=== PATIENT | female | born 1975 | race Two or more races ===

== ENCOUNTER 2020-08-02 15:39 | Emergency (ER) | payer MEDICAID, SELFPAY ==
[2020-08-02 16:26] VITALS: BP 160/102; PULSE 83; RESP 16; TEMP 36.8; O2SAT 98; BMI 32.8
--- NOTE | 2020-08-02 17:09 | ED_ITS ---
HPI - Wound/Laceration General Chief Complaint: Wound/Laceration <MICAELA Estrella - Last Filed: 08/02/20 17:28> Stated Complaint: ? nostril infection <MICAELA Estrella - Last Filed: 08/02/20 17:28> Time Seen by Provider: 08/02/20 16:59 <MICAELA Estrella - Last Filed: 08/02/20 17:28> History of Present Illness HPI narrative: Or patient with history of IV drug abuse, hypertension, diabetes complains of picking at the left nostril for the last 3 weeks with increasing crusting and swelling around the nostril and the face around the nostril, she has no difficulty breathing or swallowing no headache no fever no chills, pain is mild <MICAELA Estrella Last Filed: 08/02/20 17:28> Related Data Home Medications: Previous Rx's Medication Instructions Recorded amoxicillin-pot clavulanate 1 tab PO Q12H 10 Days #20 tab 08/02/20 [Augmentin] doxycycline hyclate 100 mg PO BID 7 Days #14 cap 08/02/20 mupirocin 1 appl TOPICAL TID #22 g 08/02/20 <MICAELA Estrella - Last Filed: 08/02/20 17:28> Allergies/Adverse Reactions: Allergies Allergy/AdvReac Type Severity Reaction Status Date / Time No Known Allergies Allergy Unverified 03/29/20 16:15 <MICAELA Estrella - Last Filed: 08/02/20 17:28> Review of Systems Review of Systems: Positive for left nostril mild pain and swelling No fever no chills no dizziness no weakness no fatigue no body aches, no chest pain no cough no shortness of breath, no difficulty breathing or swallowing, no nausea no vomiting no difficulty eating or drinking, no headache <MICAELA Estrella Last Filed: 08/02/20 17:28> FORMERLY [facility], [facility] Past Medical History Attestation statement: The following information was validated with the patient. <MICAELA Estrella - Last Filed: 08/02/20 17:28> [facility], [facility] Narrative: Patient is IV drug user <MICAELA Estrella Last Filed: 08/02/20 17:28> Medical History: Medical History (Updated 08/03/20 @ 00:00 by Background Daemon) Asthma Diabetes HTN (hypertension) <MICAELA Estrella - Last Filed: 08/02/20 17:28> Social History Social History: Social History Smoking Status: Current every day smoker Use of substances other than those prescribed or required for medical reasons: Yes Substance Use Type: Heroin Substance Use Frequency: Daily Last Used Substance: Hours (ago) Advance Directives: No Advance Directives Information Provided: Yes <MICAELA Estrella - Last Filed: 08/02/20 17:28> Physical Exam Vital Signs: Vital Signs: Last Vital Signs Temp 98.2 F 08/02/20 16:26 Pulse 83 08/02/20 16:26 Resp 16 08/02/20 16:26 BP 160/102 H 08/02/20 16:26 Pulse Ox 98 08/02/20 16:26 Body Mass Index 32.8 <MICAELA Estrella - Last Filed: 08/02/20 17:28> Vital Signs: Last Vital Signs Temp 98.2 F 08/02/20 16:26 Pulse 83 08/02/20 16:26 Resp 16 08/02/20 16:26 BP 160/102 H 08/02/20 16:26 Pulse Ox 98 08/02/20 16:26 Body Mass Index 32.8 <Herbert Dumont MD - Last Filed: 08/08/20 10:32> General appearance is no acute distress comfortable and cooperative, a and O x3 The ears are clear with normal tympanic membranes the eyes are clear without discharge The nose the left nostril is mildly swollen with crusting and redness in the nostril, septum is intact, there is some mild facial swelling in the left maxillary area, the pharynx is clear, there is no difficulty swallowing , voice is normal, no significant redness around the face, there is tenderness to the left maxillary sinus, there is no fluctuant area no abscess The neck is supple, there is a tender mobile the left submandibular lymph node The chest is clear to auscultation bilaterally with full symmetrical equal breath sounds The heart no murmur auscultated Extremities full range of motion x4 Neuro no focal deficit <MICAELA Estrella - Last Filed: 08/02/20 17:28> Course Course Course Narrative: Well-appearing patient with a cellulitis of the nose and spreading into the face is treated with trial of oral antibiotics and mupirocin and will return for recheck in 2-3 days There is no evidence of abscess, no fluctuant area, nothing to drain <MICAELA Estrella - Last Filed: 08/02/20 17:28> I have reviewed the chart <Herbert Dumont MD - Last Filed: 08/08/20 10:32> Discharge Plan Discharge Clinical Impression: Cellulitis of face <MICAELA Estrella - Last Filed: 08/02/20 17:28> Patient Disposition: Home, Self-Care <MICAELA Estrella - Last Filed: 08/02/20 17:28> Additional Instructions: Return to ER in 2 days for recheck Return to ER any time for worse facial swelling, pain, spreading redness, fever, any sign of worsening infection or any concerns You get a tetanus shot <MICAELA Estrella - Last Filed: 08/02/20 17:28> Prescriptions: New doxycycline hyclate 100 mg capsule 100 mg PO BID 7 Days Qty: 14 RF: 0 amoxicillin-pot clavulanate [Augmentin] 875-125 mg tablet 1 tab PO Q12H 10 Days Qty: 20 RF: 0 mupirocin 2 % ointment 1 appl topical TID Qty: 22 RF: 0 <MICAELA Estrella - Last Filed: 08/02/20 17:28> Stand Alone Forms: Work/School Release <MICAELA Estrella - Last Filed: 08/02/20 17:28> Interventions: ED Discharge Assessment Last Done: 08/02/20 18:41 <MICAELA Estrella - Last Filed: 08/02/20 17:28> Discharge Date/Time: 08/02/20 18:46 <MICAELA Estrella - Last Filed: 08/02/20 17:28>
[2020-08-02] MEDS: Amoxicillin/Potassium Clav 875 MG TABLET PO (17:31)
== END 2020-08-02 18:46 | disposition home or self-care (01) ==
PROVIDERS: Emergency Provider Emergency Medicine; PCP Internal Medicine
DX: J34.0 Abscess, furuncle and carbuncle of nose (principal); S00.31XA Abrasion of nose, initial encounter; F11.10 Opioid abuse, uncomplicated; F17.200 Nicotine dependence, unspecified, uncomplicated; X58.XXXA Exposure to other specified factors, initial encounter; Y93.9 Activity, unspecified; Y92.9 Unspecified place or not applicable; Y99.9 Unspecified external cause status; Z71.6 Tobacco abuse counseling; Z79.899 Other long term (current) drug therapy; Z71.51 Drug abuse counseling and surveillance of drug abuser
CPT/HCPCS: 90471; 90715; 99283; 99284

== ENCOUNTER 2020-11-25 11:38 | Emergency (ER) | payer MEDICAID, SELFPAY ==
[2020-11-25 11:52] VITALS: BP 187/100; PULSE 106; RESP 22; TEMP 36.6; O2SAT 97; BMI 30.9
--- NOTE | 2020-11-25 11:54 | ED.GENADULT ---
HPI - General Adult General Chief complaint: Overdose Stated complaint: drug use Source: patient Mode of arrival: ambulatory Limitations: no limitations History of Present Illness HPI narrative: Patient presents to ED for drug use. Patient admits to snorting heroin and cocaine. Patient denies falling. Patient seems high. Related Data Previous Rx's Medication Instructions Recorded amoxicillin-pot clavulanate 1 tab PO Q12H 10 Days #20 tab 08/02/20 [Augmentin] doxycycline hyclate 100 mg PO BID 7 Days #14 cap 08/02/20 mupirocin 1 appl TOPICAL TID #22 g 08/02/20 Allergies Allergy/AdvReac Type Severity Reaction Status Date / Time No Known Allergies Allergy Unverified 03/29/20 16:15 Review of Systems Review of Systems: Yes all other systems are reviewed and are negative Constitutional: Constitutional: Reports as per HPI and Reports no additional constitutional complaints Eyes: Eyes: Reports as per HPI and Reports no additional eye complaints ENT: Reports system reviewed and no additional complaints, except as documented and Reports as per HPI Cardiovascular: Cardiovascular: Reports as per HPI and Reports no additional cardiovascular complaints Respiratory: Respiratory: Reports as per HPI and Reports no additional respiratory complaints Gastrointestinal: Gastrointestinal: Reports as per HPI and Reports no additional gastrointestinal complaints Genitourinary: Genitourinary: Reports no additional female genitourinary complaints and Reports as per HPI Musculoskeletal: Musculoskeletal: Reports no additional musculoskeletal complaints and Reports as per HPI Neurologic: Reports system reviewed and no additional complaints, except as documented and Reports as per HPI Psychiatric: Psychiatric: Reports no additional psychiatric complaints and Reports as per HPI [facility] Past Medical History Medical History (Updated 11/25/20 @ 15:52 by MICAELA Charles) Asthma Diabetes HTN (hypertension) Social History Social History Smoking Status: Current every day smoker Substance Use Type: Heroin Advance Directives: No Advance Directives Information Provided: No Physical Exam Vital Signs: Vital Signs: Last Vital Signs Temp 97.9 F 11/25/20 11:52 Pulse 106 H 11/25/20 11:52 Resp 22 H 11/25/20 11:52 BP 187/100 H 11/25/20 11:52 Pulse Ox 97 11/25/20 11:52 Body Mass Index 30.9 Const: Other: Patient high. Patient talks to herself and the random movements of body. General: cooperative, healthy appearing and comfortable Orientation/consciousness: patient oriented x3 HENMT: Head: Yes normal to inspection, Yes No palpable skull fracture present, Yes normocephalic and Yes atraumatic Eyes: General: appearance normal, both eyes and all related structures Neck: Neck: Yes normal visual inspection, Yes full ROM, Yes no lymphadenopathy, Yes no meningeal signs, Yes trachea midline, Yes supple and No tender Chest: Chest palpation & inspection: normal inspection of the chest and normal palpation of entire chest wall Resp: Effort & Inspection: normal respiratory effort and able to speak in complete sentences Auscultation: clear to auscultation bilaterally Cardio: Jugular venous distension: no JVD Heart sounds: S1 normal heart sound present and S2 normal heart sound present GI: Inspection: Yes normal to inspection and No abdominal wall ecchymosis Palpation (GI): Soft to palpation, not firm, nontender, no guarding and not rigid : General: No CVA tenderness and Yes no CVA tenderness Back/Spine/Pelvis: Back: no CVA tenderness, No CVA tenderness and No back tenderness Skin: General skin exam: no rashes or lesions noted and elasticity normal Neuro: Other: under the influence General: patient oriented x3, no meningeal signs and CN's II-XI intact bilaterally Cranial nerves: Yes CN's II-XII intact bilaterally Extrem: General: Yes normal to inspection and Yes full ROM Psych: Appearance: grossly normal, well kempt and disheveled Course Course Course Narrative: Patient will be allowed to sober and re-evaluated. Reevaluation(s) Reevaluation #1: When patient became alert oriented x3 patient eloped from the ER as per charge nurse. Medical Decision Making [facility] Narrative Medical decision making narrative: opiate abuse Lab Data Labs: Lab Results 11/25/20 Range/Units 12:01 POC Glucose 104 (60-115) mg/dL Discharge Plan Discharge Clinical Impression: Opioid abuse Patient Disposition: Elopement Prescriptions: No Action doxycycline hyclate 100 mg capsule 100 mg PO BID 7 Days Qty: 14 RF: 0 amoxicillin-pot clavulanate [Augmentin] 875-125 mg tablet 1 tab PO Q12H 10 Days Qty: 20 RF: 0 mupirocin 2 % ointment 1 appl topical TID Qty: 22 RF: 0 Interventions: ED Discharge Assessment Last Done: 11/25/20 15:10 Discharge Date/Time: 11/25/20 14:25
[2020-11-25 12:05] LABS: Glucose, Whole Blood 104 mg/dL (60-115)
== END 2020-11-25 14:25 | disposition left against medical advice (07) ==
PROVIDERS: Emergency Provider Emergency Medicine
DX: T40.1X1A Poisoning by heroin, accidental (unintentional), initial encounter (principal); T40.5X1A Poisoning by cocaine, accidental (unintentional), initial encounter; F11.10 Opioid abuse, uncomplicated; Y92.9 Unspecified place or not applicable; Z79.899 Other long term (current) drug therapy; Z71.51 Drug abuse counseling and surveillance of drug abuser
CPT/HCPCS: 82947; 99283

== ENCOUNTER 2020-12-17 15:09 | Emergency (ER) | payer MEDICAID, SELFPAY ==
--- NOTE | ~2020-12-17 | CT_ITS ---
EXAMINATION: CT ABDOMEN AND PELVIS WITHOUT CONTRAST CLINICAL INFORMATION: Left flank and left lower abdominal pain COMPARISON: CT abdomen and pelvis 10/11/2016 TECHNIQUE: Multidetector volumetric imaging was performed from the superior aspect of the liver through the pubic symphysis. Sagittal and coronal reformatted images were obtained on the technologist's workstation. This CT examination was performed using dose optimization techniques as appropriate, variously including the following: *Automated exposure control *Adjustment of mA and/or kV according to patient size (this includes techniques or standardized protocols for targeted exams where dose is matched to indication/reason for exam; i.e. extremities or head) *Use of iterative reconstruction technique DLP: 556 mGy-cm FINDINGS: LUNG BASES: The visualized lung bases are unremarkable. LIVER, GALLBLADDER, AND BILIARY TREE: The liver is normal in size, shape, and attenuation. No focal hepatic lesion or biliary ductal dilatation is present. The gallbladder is unremarkable with no evidence of radiopaque gallstones, gallbladder wall thickening, or obvious pericholecystic inflammatory changes. PANCREAS: Unremarkable. SPLEEN: Unremarkable. ADRENAL GLANDS: Unremarkable. KIDNEYS AND URETERS: The kidneys are normal in size, shape, and attenuation. There is a 2 mm radiopaque calculi mid pole right kidney without caliectasis. There is mild left hydroureteronephrosis, likely 2 mm left UVJ stone. There are numerous phleboliths seen in the pelvis especially left side limiting evaluation of the left ureter. Left kidney measures 11.2 cm in length and the right kidney measures 11.4 cm in length. BLADDER: The bladder is nondistended. GASTROINTESTINAL TRACT: Scattered stool and gas is seen throughout the colon without significant distention. The small bowel loops are normal caliber. ABDOMINAL WALL: A small umbilical hernia containing fat is noted. LYMPH NODES: Normal. VASCULAR: Unremarkable. PELVIC VISCERA: The uterus is anteverted and appears unremarkable. No free air or free fluid seen. OSSEOUS STRUCTURES: Unremarkable. CT/CT abdomen pelvis wo con IMPRESSION: Suspect lumen of partially obstructing left distal ureteral stone with mild hydroureteronephrosis. There are numerous phleboliths in in the pelvis especially on the left distal ureter Limited evaluation of this area and ureteral stones. There is nonobstructive 2 mm radiopaque calculi mid pole right kidney. Mild constipation.
[2020-12-17 15:26] VITALS: BP 163/79; PULSE 50; RESP 16; TEMP 36.6; O2SAT 97; BMI 24.7
--- NOTE | 2020-12-17 15:35 | ED_ITS ---
HPI - Abdominal Pain General Chief Complaint: Abdominal Pain Stated Complaint: LLQ PAIN Time Seen by Provider: 12/17/20 15:35 Source: patient Mode of arrival: EMS Limitations: no limitations History of Present Illness HPI narrative: left lower abdominal pain, resent heroine use, patient states that her urine is dark. MD elicited complaint: abdominal pain Onset (ago): hour(s) Pain Consistency: constant Severity: mild Quality: cramping Exacerbating factors: nothing Relieving factors: nothing Associated symptoms: nausea and vomiting Related Data Previous Rx's Medication Instructions Recorded amoxicillin-pot clavulanate 1 tab PO Q12H 10 Days #20 tab 08/02/20 [Augmentin] doxycycline hyclate 100 mg PO BID 7 Days #14 cap 08/02/20 mupirocin 1 appl TOPICAL TID #22 g 08/02/20 Allergies Allergy/AdvReac Type Severity Reaction Status Date / Time No Known Allergies Allergy Unverified 03/29/20 16:15 Review of Systems Constitutional: Reports no additional constitutional complaints Eyes: Reports no additional eye complaints Denies dizziness Cardiovascular: Reports no additional cardiovascular complaints Respiratory: Reports as per HPI Gastrointestinal: Reports no additional gastrointestinal complaints Genitourinary: Reports no additional female genitourinary complaints Musculoskeletal: Reports no additional musculoskeletal complaints Skin/Breast: Denies rash Reports system reviewed and no additional complaints, except as documented, Denies dizziness and Denies Sensory deficit (Neuro) Psychiatric: Denies anxiety Physical Exam Vital Signs: Vital Signs: Last Vital Signs Temp 97.8 F 12/17/20 16:14 Pulse 68 12/17/20 16:14 Resp 13 12/17/20 16:14 BP 146/68 H 12/17/20 16:14 Pulse Ox 98 12/17/20 16:14 Body Mass Index 24.7 Const: Other: Patient does not appear to be in pain, seems still to be influenced by heroine Nutritional Appearance: average body habitus Orientation/consciousness: oriented to person and patient oriented x3 Limitations: no limitations HENMT: Head: Yes normal to inspection Ears: external ears normal General nose exam: Normal external nose present Mouth: Normal oral and palatal mucosa present and oropharynx normal Throat: Yes posterior oropharynx normal Eyes: General: appearance normal, both eyes and all related structures Neck: Other: supple Neck: Yes normal visual inspection Chest: Chest palpation & inspection: normal inspection of the chest Resp: Auscultation: clear to auscultation bilaterally Cardio: Jugular venous distension: no JVD Rate: regular rate Rhythm: regular rhythm Heart sounds: S1 normal heart sound present and S2 normal heart sound present GI: Inspection: Yes normal to inspection Palpation (GI): Soft to palpation, nontender and No hepatosplenomegaly present Auscultation: normal bowel sounds Back/Spine/Pelvis: Other: mild CVAT on left Skin: General skin exam: no rashes or lesions noted Neuro: General: oriented to person and patient oriented x3 Cranial nerves: Yes CN's II-XII intact bilaterally Motor exam (neuro): 5/5 motor strength present throughout Sensory Exam: No Sensory deficit (Neuro) Extrem: General: Yes normal to inspection Psych: Appearance: grossly normal Course Course Course Narrative: Patient still under the influence of heroine but I suspect she may have a kidney stone. Awaitiing Ct results and UA. Will sign out to Dr. Mcelroy [facility] - Abdominal Pain Lab Data Result diagrams: 12/17/20 15:50 12/17/20 15:50 Labs: Lab Results 12/17/20 Range/Units 15:50 RBC 4.88 (4.20-5.50) X10*6/uL Hgb 12.1 (12.0-16.0) g/dl Hct 39.7 (37-47) % MCV 81.4 (80-98) fL MCH 24.8 L (27.0-33.0) pg MCHC 30.5 L (31.0-35.0) g/dl RDW 15.9 (11.0-16.0) % Plt Count 259 (160-400) X10*3/uL MPV 12.5 H (9.4-12.3) fL Immature Gran % (Auto) Cancelled Neut % (Auto) Cancelled Lymph % (Auto) Cancelled [place] % (Auto) Cancelled Eos % (Auto) Cancelled Baso % (Auto) Cancelled Lymph # (Auto) Cancelled [place] # (Auto) Cancelled Eos # (Auto) Cancelled Baso # (Auto) Cancelled Abs Immat Gran (auto) Cancelled Absolute Neuts (auto) Cancelled Absolute Nucleated RBC 0.000 (0.0-0.012) X10*3/uL Nucleated RBC % (auto) 0.0 (0.0-0.2) /100WBC Discharge Plan Discharge Prescriptions: No Action doxycycline hyclate 100 mg capsule 100 mg PO BID 7 Days Qty: 14 RF: 0 amoxicillin-pot clavulanate [Augmentin] 875-125 mg tablet 1 tab PO Q12H 10 Days Qty: 20 RF: 0 mupirocin 2 % ointment 1 appl topical TID Qty: 22 RF: 0 PMFSH Past Medical History Medical History Asthma Diabetes HTN (hypertension) Social History Social History Alcohol intake: current Alcohol intake frequency: holidays/special occasions only Patient Tobacco Use Status: Current everyday Tobacco user Smoked in Last 30 Days: Yes Use of substances other than those prescribed or required for medical reasons: Yes Substance Use Type: Heroin Last Used Substance: Days (ago) Advance Directives: No Advance Directives Information Provided: No
[2020-12-17] MEDS: 0.9 % Sodium Chloride 1,000 ML 999 ML IVCONT ×2 (15:52→16:45)
[2020-12-17 15:55] VITALS: PULSE 50
--- NOTE | 2020-12-17 16:00 | PC.NURSE ---
FSBS 92 on arrival to ER. Pt is drowsy and falls asleep while talking to typewriters functional tester and provider. Pt easily aroused to name. Pt admits to using heroine yesterday or the day before. Pt denies any use today. PIV started in left ac with 20 gauge. Pt complains of pain in LLQ that started this morning.
[2020-12-17 16:01] LABS: Hematocrit 39.7 % (37-47); Hemoglobin 12.1 g/dl (12.0-16.0); Mean Corpuscular HGB Conc 30.5 g/dl (31.0-35.0); Mean Corpuscular Hemoglobin 24.8 pg (27.0-33.0); Mean Corpuscular Volume 81.4 fL (80-98); Mean Platelet Volume 12.5 fL (9.4-12.3); Platelet Count 259 X10*3/uL (160-400); Red Blood Count 4.88 X10*6/uL (4.20-5.50); Red Cell Distribution Width 15.9 % (11.0-16.0)
[2020-12-17 16:04] LABS: WBC ABN SCTR FOR CBC 1
[2020-12-17] MEDS: Ketorolac Tromethamine 30 MG/ML VIAL IVPUSH (16:11)
[2020-12-17 16:14] VITALS: BP 146/68; PULSE 68; RESP 13; TEMP 36.6; O2SAT 98
[2020-12-17 16:23] LABS: White Blood Count 8.7 X10*3/uL (4.8-10.8)
[2020-12-17 16:25] LABS: Alanine Aminotransferase 14 U/L (0-31); Albumin Level 3.6 g/dL (3.5-5.0); Alkaline Phosphatase 84 U/L (39-117); Anion Gap 14 (12-20); Aspartate Amino Transferase 21 U/L (5-31); Bilirubin Direct < 0.2 mg/dL (0.0-0.5); Bilirubin Total 0.5 mg/dL (0.0-1.0); Blood Urea Nitrogen 13 mg/dL (9-16); Calcium 9.2 mg/dL (8.4-10.2); Carbon Dioxide 27 mmol/L (22-29); Chloride 104 mmol/L (96-108); Creatinine Clr Calc Pharmacy 83.6; Estimated Glomerular Filt Rate > 60; Glucose Random 93 mg/dL (60-115); Potassium 3.8 mmol/L (3.3-5.1); Sodium 141 mmol/L (135-145); Total Protein 6.6 g/dL (6.5-8.0)
[2020-12-17 16:40] LABS: Band Neutrophils Percent 2 % (3-5); Basophils Abs Manual 0.1 X10*3/uL (0.0-0.3); Basophils Percent Manual 1 % (0-1); Eosinophils Absolute Manual 0.3 X10*3/UL (0.0-0.8); Eosinophils Percent Manual 3 % (0-4); Lymphocytes Percent Manual 11 % (20-40); Metamyelocytes Absolute 0.1 X10*3/uL; Metamyelocytes Percent 1 %; Monocytes Absolute Manual 0.5 X10*3/uL (0.0-1.2); Monocytes Percent Manual 6 % (2-11); Myelocytes Absolute 0.1 X10*/uL; Myelocytes Percent 1 %; Neutrophils Absolute Manual 6.7 X10*3/uL (2.2-7.9); Neutrophils Percent Manual 75 % (45-73); RBC Morphology NOTED
[2020-12-17 16:41] LABS: Burr Cells 3+ (>5) /OIF; Schistocytes 1+ (0-2) /OIF
[2020-12-17 16:42] LABS: Large Platelet PRESENT; Microcytosis 1+ (5-14) /OIF; Platelet Estimate NORMAL (NORMAL); Platelet Morphology Comment NOTED
[2020-12-17 18:49] LABS: Glucose Urine UA NEG (NEG); Leukocyte Esterase Urine NEG (NEG); Nitrite Urine NEG (NEG); PH 6.5 (5.0-8.0); Urine Blood 1+ (NEG); Urine Ketones >=80 MG/DL (NEG); Urine Protein 1+ MG/DL (NEG-TRACE)
[2020-12-17 18:50] LABS: Appearance Urine HAZY; Color Urine DARK YELLOW
[2020-12-17 18:51] LABS: UPreg QC Valid YES; Urine Pregnancy NEGATIVE (NEGATIVE)
[2020-12-17 18:54] LABS: WBC Urine 0 /HPF (0-4)
[2020-12-17 18:55] LABS: Bacteria Urine 2+ /LPF; Squamous Epithelial Cell Urine 3+ /LPF
--- NOTE | 2020-12-17 19:00 | MHC.RECOVSUP ---
? Reason for consult Recovery support o Current location: ED17 o Identified substance use concern: Heroin - Support ? Intervention: o Community resources provided o Harm reduction discussion ? Plan: o Patient to follow up with [facility] after discharge ? Additional information:
[2020-12-17] MEDS: Tamsulosin HCL 0.4 MG CAPSULE PO (20:04)
[2020-12-17] MEDS: oxyCODONE HCl Immed Release 5 MG TABLET 10 MG PO (20:04)
[2020-12-17 20:16] LABS: Glucose, Whole Blood 92 mg/dL (60-115)
== END 2020-12-17 20:10 | disposition home or self-care (01) ==
PROVIDERS: Emergency Provider Emergency Medicine; PCP Internal Medicine
DX: N20.1 Calculus of ureter (principal); F11.129 Opioid abuse with intoxication, unspecified; E11.9 Type 2 diabetes mellitus without complications; I10 Essential (primary) hypertension
CPT/HCPCS: 36415; 74176; 80048; 80076; 81001; 81025; 82947; 85007; 85025; 85027; 96365; 96375; 99284; J1885

== ENCOUNTER 2021-02-05 03:55 | Emergency (ER) | payer MEDICAID, SELFPAY ==
[2021-02-05 04:05] VITALS: BP 166/80; PULSE 111; RESP 16; TEMP 36.8; O2SAT 97; BMI 21.2
--- NOTE | 2021-02-05 04:27 | PC.NURSE ---
UA obtained and sent. Pt awaiting primary MD eval.
[2021-02-05 04:33] LABS: Glucose Urine UA NEG (NEG); Leukocyte Esterase Urine NEG (NEG); Nitrite Urine NEG (NEG); Specific Gravity - Urine >= 1.030 (1.005-1.025); Urine Blood NEG (NEG); Urine Ketones NEG (NEG); Urine Protein 1+ MG/DL (NEG-TRACE)
[2021-02-05 04:35] LABS: Appearance Urine CLEAR; Color Urine YELLOW; UPreg QC Valid YES; Urine Pregnancy NEGATIVE (NEGATIVE)
[2021-02-05 04:48] LABS: Bacteria Urine 2+ /LPF; Mucus Urine 3+ /LPF; RBC Urine 0-2 /HPF (0); Squamous Epithelial Cell Urine 3+ /LPF
[2021-02-05 04:53] LABS: Amphetamine Screen Urine Not Detected (Not Detect); Barbiturates, Urine Not Detected (Not Detect); Benzodiazepines Screen Urine Not Detected (Not Detect); Cannabinoid Screen Urine Not Detected (Not Detect); Cocaine Screen Urine POSITIVE (Not Detect); Opiate Screen Urine POSITIVE (Not Detect); Phencyclidine Screen Urine Not Detected (Not Detect)
[2021-02-05 05:14] LABS: Glucose, Whole Blood 126 mg/dL (60-115)
--- NOTE | 2021-02-05 06:20 | PC.NURSE ---
Pt fleeing the ED, security catching up to pt in Triage. Pt suddenly upset, tearful, requesting something for anxiety. This RN discussing plan with MD. MD at bedside for primary eval. Plan to transfer to pod once MD eval is complete. This RN giving report to Omar PUNETES.
[2021-02-05] MEDS: LORazepam 1 MG TABLET PO (06:33)
--- NOTE | 2021-02-05 06:47 | PC.NURSE ---
Patient just got transferred from main ED, attempted to elope, patient was tearful and upset, patient received Ativan 1 mg from ED RN, patient is still tearful, [facility] referral completed via smart sheet, called and spoke with Courtney/confirmed receipt of referral, patient will be seen in the morning, will continue to monitor.
--- NOTE | 2021-02-05 06:57 | ED_ITS ---
HPI - Psych General Chief Complaint: Psychiatric Symptoms Stated Complaint: HALLUCINATIONS WITH SI Time Seen by Provider: 02/05/21 06:28 Source: patient Mode of arrival: EMS History of Present Illness HPI Narrative: Is a 45-year-old female with past medical history of depression, suicidal ideation, PTSD, substance dependence a who is brought in by EMS with complaints of increased family stress and stating that she is having auditory/visual hallucinations. She states the voices are not saying anything distinct it is more like noises and she states that her visual hallucinations are not something she is staying at the periphery but instead something that she is looking directly at. Patient states that she has been having these hallucinations and voices for the past 3 months but today it just became ?too much?. Patient states that she uses cocaine and heroin 2 times a day, in the morning and the evening, and that she last use just prior to arrival. Patient reports in-situ small as a guzmán approximately 10 years ago and that time was diagnosed with bipolar condition for which she does not take medications. Although patient describes suicidal thoughts she states that she does not have a plan because ?this is not something that I could ever do?. Related Data Home Medications Medication Instructions Recorded Confirmed atorvastatin 1 tab PO BEDTIME 02/05/21 02/05/21 lisinopril 1 tab PO DAILY 02/05/21 02/05/21 metformin 1 tab PO BID 02/05/21 02/05/21 Allergies Allergy/AdvReac Type Severity Reaction Status Date / Time No Known Allergies Allergy Unverified 02/05/21 04:20 Review of Systems Review of Systems: Pertinent positives and negatives as stated in HPI 10 point review of systems is otherwise negative. [facility] Past Medical History Source: nursing notes reviewed Medical History Asthma Diabetes HTN (hypertension) Substance abuse Surgical History H/O tubal ligation Social History Social History Alcohol intake: current Alcohol intake frequency: holidays/special occasions only Patient Tobacco Use Status: Current everyday Tobacco user Substance Use Type: Heroin Advance Directives: No Advance Directives Information Provided: No Patient : No Physical Exam Vital Signs: Vital Signs: Last Vital Signs Temp 98.0 F 02/05/21 07:54 Pulse 76 02/05/21 07:54 Resp 17 02/05/21 07:54 BP 167/100 H 02/05/21 07:54 Pulse Ox 94 02/05/21 07:54 Body Mass Index 21.2 VITAL SIGNS: Reviewed. GENERAL: Well developed, well nourished, anxious, restless. HEAD: Normocephalic/atraumatic EYES: PERRLA, EOMI EARS: Ext canals without abnormality OROPHARYNX: no oral lesions noted, posterior pharynx clear LUNGS: Normal breath sounds. No adventitious sounds or accessory muscle use. SpO2<94> CARDIOVASCULAR: Regular rate and rhythm without noted murmurs ABDOMEN: Soft, non-tender, non-distended with bowel sounds. SKIN: Inspection of the skin reveals no rashes NEUROLOGIC: Alert and oriented x 4. Strength and sensation to light touch were grossly intact x 4 PSYCH: Anxious, restless, tearful Course Course Course Narrative: This is a 45-year-old female with history and clinical presentation consistent with AVH, possible component of decompensated bipolar although unclear what percentage of this is secondary to patient's substance use. She is otherwise medically cleared for further evaluation by the behavioral team. Signed out to MICAELA Leal Reevaluation(s) Reevaluation #1: Patient placed in physician observation because the patient needed more time for behavioral team evaluation. At the time observation was started the patient's vital signs were stable, patient is alert and oriented but slightly agitated, neuro: Nonfocal, CV RRR, lungs clear Time: 07:30 MDM - Psych Lab Data Labs: Lab Results 02/05/21 02/05/21 02/05/21 Range/Units 04:26 04:26 04:26 POC Glucose (60-115) mg/dL Urine Color YELLOW Urine Appearance CLEAR Urine pH 6.0 (5.0-8.0) Ur Specific [place] >= 1.030 H (1.005-1.025) Urine Protein 1+ H (NEG-TRACE) MG/DL Urine Glucose (UA) NEG (NEG) MG/DL Urine Ketones NEG (NEG) MG/DL Urine Blood NEG (NEG) Urine Nitrite NEG (NEG) Ur Leukocyte Esterase NEG (NEG) Urine RBC 0-2 (0) /HPF Urine WBC 1-4 (0-4) /HPF Ur Squamous Epith Cells 3+ /LPF Urine Bacteria 2+ /LPF Urine Mucus 3+ /LPF Urine Test NEGATIVE (NEGATIVE) Urine Opiates Screen POSITIVE H (Not Detect) Ur Barbiturates Screen Not Detected (Not Detect) Ur Phencyclidine Scrn Not Detected (Not Detect) Ur Amphetamines Screen Not Detected (Not Detect) U Benzodiazepines Scrn Not Detected (Not Detect) Urine Cocaine Screen POSITIVE H (Not Detect) U Marijuana (THC) Screen Not Detected (Not Detect) COVID-19 ([facility]) (Negative) COVID-19 [employer] Com 02/05/21 02/05/21 Range/Units 05:12 06:55 POC Glucose 126 H (60-115) mg/dL Urine Color Urine Appearance Urine pH (5.0-8.0) Ur Specific [place] (1.005-1.025) Urine Protein (NEG-TRACE) MG/DL Urine Glucose (UA) (NEG) MG/DL Urine Ketones (NEG) MG/DL Urine Blood (NEG) Urine Nitrite (NEG) Ur Leukocyte Esterase (NEG) Urine RBC (0) /HPF Urine WBC (0-4) /HPF Ur Squamous Epith Cells /LPF Urine Bacteria /LPF Urine Mucus /LPF Urine Test (NEGATIVE) Urine Opiates Screen (Not Detect) Ur Barbiturates Screen (Not Detect) Ur Phencyclidine Scrn (Not Detect) Ur Amphetamines Screen (Not Detect) U Benzodiazepines Scrn (Not Detect) Urine Cocaine Screen (Not Detect) U Marijuana (THC) Screen (Not Detect) COVID-19 ([facility]) Negative (Negative) COVID-19 Clin Com See Note Discharge Plan Discharge Clinical Impression: Bipolar disorder Prescriptions: No Action atorvastatin 80 mg tablet 1 tab PO BEDTIME RF: 0 metformin 1,000 mg tablet 1 tab PO BID RF: 0 lisinopril 10 mg tablet 1 tab PO DAILY RF: 0
--- NOTE | 2021-02-05 07:06 | PC.NURSE ---
patient remains in room making bed and crying. patient appears in no acutes distress at present.
[2021-02-05 07:24] LABS: COVID-19 Test Negative (Negative)
[2021-02-05 07:54] VITALS: BP 167/100; PULSE 76; RESP 17; TEMP 36.7; O2SAT 94
[2021-02-05 15:55] VITALS: BP 167/100; PULSE 76
[2021-02-05 20:21] VITALS: BP 157/91; PULSE 64; RESP 20; TEMP 36.1; O2SAT 98
[2021-02-05] MEDS: metFORMIN HCl 1,000 MG TABLET 1000 MG PO (21:10)
[2021-02-05] MEDS: Atorvastatin Calcium 80 MG TABLET PO (21:10)
[2021-02-05] MEDS: LORazepam 1 MG TABLET 2 MG PO (22:12)
[2021-02-06 01:07] VITALS: BP 147/98; PULSE 75; RESP 16; TEMP 37.1; O2SAT 98
--- NOTE | 2021-02-06 06:08 | PC.NURSE ---
Patient is currently sleeping, did not sleep well during overnight shift but patient slept whole evening, no distress observed/reported, son called had brief appropriate talk, disposition is section 12 inpatient bed search, behavior appropriate, will continue to monitor.
[2021-02-06] MEDS: LORazepam 1 MG TABLET 2 MG PO (06:21)
[2021-02-06 08:07] LABS: Creatinine Clr Calc Pharmacy 92.7; Estimated Glomerular Filt Rate > 60
[2021-02-06 08:11] VITALS: BP 147/98
[2021-02-06] MEDS: metFORMIN HCl 1,000 MG TABLET 1000 MG PO (08:11)
--- NOTE | 2021-02-06 08:13 | PC.NURSE ---
report taken from wing phelps pt here for avh, non med compliance. plan for pt is inpt sec 12 bedsearch, took morning meds w/o issue, ate all of breakfast, ambulatory to [facility] phone to speak w pt kandace. calm and cooperative w maximo phelps.
[2021-02-06 08:20] VITALS: BP 136/103; PULSE 75; RESP 16; TEMP 36.8; O2SAT 99
--- NOTE | 2021-02-06 13:22 | PC.NURSE ---
pt and son at bedside for visitation. acting appropriately.
[2021-02-06 16:20] VITALS: BP 120/68; PULSE 88; RESP 20; TEMP 37.1; O2SAT 96
== END 2021-02-06 18:14 ==
PROVIDERS: Physician Assistant Medical; Emergency Provider Student in an Organized Health Care Education/Training Program; PCP Internal Medicine
DX: F31.9 Bipolar disorder, unspecified (principal); R45.851 Suicidal ideations; R44.0 Auditory hallucinations; R44.1 Visual hallucinations; F11.20 Opioid dependence, uncomplicated; E11.9 Type 2 diabetes mellitus without complications; I10 Essential (primary) hypertension; F17.210 Nicotine dependence, cigarettes, uncomplicated; J45.909 Unspecified asthma, uncomplicated; Z79.899 Other long term (current) drug therapy; Z79.02 Long term (current) use of antithrombotics/antiplatelets; Z79.84 Long term (current) use of oral hypoglycemic drugs; Z20.822 Contact with and (suspected) exposure to COVID-19
CPT/HCPCS: 36415; 80307; 81001; 81025; 82565; 82947; 87635; 99285

== ENCOUNTER 2021-11-25 11:37 | Outpatient (REF) | payer MEDICAID, SELFPAY ==
[2021-11-25 11:53] LABS: MANUAL DIFF FLAG NO
[2021-11-25 12:20] LABS: Basophils Percent Auto 0.6 % (0-2); Eosinophils Absolute Auto 0.1 X10*3/uL (0.0-0.4); Eosinophils Percent Auto 1.8 % (0-4); Hematocrit 36.5 % (37.0-47.0); Hemoglobin 11.5 g/dl (12.0-16.0); Imm Gran Abs Auto 0.06 X10*3/uL (0.00-0.03); Imm Gran Pct Auto 0.8 % (0.0-0.4); Lymphocytes Absolute Auto 2.1 X10*3/uL (1.2-4.9); Lymphocytes Percent Auto 29.5 % (20-40); Mean Corpuscular HGB Conc 31.5 g/dl (31.0-35.0); Mean Corpuscular Hemoglobin 27.3 pg (27.0-33.0); Mean Corpuscular Volume 86.7 fL (80.0-98.0); Mean Platelet Volume 10.6 fL (9.4-12.3); Monocytes Absolute Auto 0.5 X10*3/uL (0.1-1.2); Monocytes Percent Auto 6.9 % (2-11); Neutrophils Absolute Auto 4.3 x10*3/uL (2.0-8.3); Neutrophils Percent Auto 60.4 % (45-73); Platelet Count 303 X10*3/uL (160-400); Red Blood Count 4.21 X10*6/uL (4.20-5.50); Red Cell Distribution Width 14.6 % (11.0-16.0); White Blood Count 7.1 X10*3/uL (4.8-10.8)
[2021-11-25 12:31] LABS: Estimated Average Glucose 146 mg/dL; Hemoglobin A1c % 6.7 %
[2021-11-25 12:48] LABS: Alanine Aminotransferase 12 U/L (0-31); Albumin Level 4.2 g/dL (3.5-5.0); Alkaline Phosphatase 64 U/L (39-117); Anion Gap 9 (12-20); Aspartate Amino Transferase 12 U/L (5-31); Bilirubin Total 0.4 mg/dL (0.0-1.0); Blood Urea Nitrogen 13 mg/dL (9-16); Calcium 9.4 mg/dL (8.4-10.2); Carbon Dioxide 28 mmol/L (22-29); Chloride 108 mmol/L (96-108); Cholesterol 206 mg/dL; Estimated Glomerular Filt Rate > 60; Glucose Random 92 mg/dL (60-115); HDL Cholesterol 55 mg/dL; LDL Cholesterol Calculated 135 mg/dl; Potassium 4.2 mmol/L (3.3-5.1); Sodium 141 mmol/L (135-145); Total Protein 7.1 g/dL (6.5-8.0); Triglycerides 80 mg/dL
[2021-11-25 13:11] LABS: Vitamin B12 204 pg/mL (200-900)
[2021-11-25 13:32] LABS: Creatinine Urine 159.69 mg/dL; Microalbum/Creatinine Ratio Ur 17.5 ug/mg cr
[2021-11-28 08:55] LABS: TS Negative Control Passed; TS Panel A 0; TS Panel B 0; TS Positive Control Passed; TSpotTB Negative (Negative)
== END 2021-11-25 11:38 | disposition home or self-care (01) ==
LOC: HO.LAB 11:37
PROVIDERS: PCP Internal Medicine; Visit Provider Internal Medicine
DX: Z00.00 Encounter for general adult medical examination without abnormal findings (principal); Z11.1 Encounter for screening for respiratory tuberculosis; R80.0 Isolated proteinuria; E11.9 Type 2 diabetes mellitus without complications; I10 Essential (primary) hypertension; Z72.0 Tobacco use
CPT/HCPCS: 36415; 80053; 80061; 82043; 82607; 83036; 84443; 85025; 86481

== ENCOUNTER 2022-06-03 20:41 | Emergency (ER) | payer MEDICAID, SELFPAY ==
--- NOTE | ~2022-06-03 | XR_ITS ---
EXAMINATION: XR CHEST CLINICAL INFORMATION: Cough and fever COMPARISON: Chest x-ray 12/24/2014 TECHNIQUE: 2 views of the chest were obtained. FINDINGS: No significant abnormality is noted involving the heart, lungs, mediastinum, bony thorax or soft tissues. XR/XR chest 2V IMPRESSION: Unremarkable examination.
[2022-06-03 20:47] VITALS: BP 146/78; PULSE 82; RESP 18; TEMP 37.1; O2SAT 97; BMI 27.9
--- NOTE | 2022-06-03 20:49 | ED.URI ---
HPI - URI/Sore Throat General Chief Complaint: Upper Respiratory Symptoms <Joseph Posey MD - Last Filed: 06/03/22 20:52> Stated Complaint: Dry Cough <Joseph Posey MD - Last Filed: 06/03/22 20:52> Time Seen by Provider: 06/03/22 21:00 <Joseph Posey MD - Last Filed: 06/03/22 20:52> Source: patient <MICAELA Nielsen - Last Filed: 06/03/22 22:02> Mode of arrival: ambulatory <MICAELA Nielsen - Last Filed: 06/03/22 22:02> Limitations: no limitations <MICAELA Nielsen - Last Filed: 06/03/22 22:02> History of Present Illness HPI Narrative: 46-year-old female with a history of diabetes, hypertension, hyperlipidemia presents to the ER for evaluation of dry cough and chest discomfort that started today. She also reports body aches, headache and generally not feeling well. She had a subjective fever at home. 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 She is a smoker. She is not bringing up any phlegm in her dry cough is more of a barking cough per her description. She denies any chest pain at rest and it is with coughing only. She is not vaccinated for COVID or flu. <MICAELA Nilesen - Last Filed: 06/03/22 22:02> MD elicited complaint: fever and cough <MICAELA Nielsen - Last Filed: 06/03/22 22:02> Onset (ago): hour(s) <MICAELA Nielsen - Last Filed: 06/03/22 22:02> Consistency: progressively worsening <MICAELA Nielsen - Last Filed: 06/03/22 22:02> Severity: moderate <MICAELA Nielsen Last Filed: 06/03/22 22:02> Able to tolerate fluids by mouth: Yes <MICAELA Nielsen Last Filed: 06/03/22 22:02> Exacerbating factors: other (Coughing) <MICAELA Nielsen Last Filed: 06/03/22 22:02> Relieving factors: nothing <MICAELA Nielsen Last Filed: 06/03/22 22:02> Context: sick contacts <MICAELA Nielsen - Last Filed: 06/03/22 22:02> Associated symptoms: fever, myalgias, headache, cough and chest pain <MICAELA Nielsen - Last Filed: 06/03/22 22:02> Treatments prior to arrival: none <MICAELA Nielsen - Last Filed: 06/03/22 22:02> Related Data Home Medications: Home Medications Medication Instructions Recorded Confirmed atorvastatin 80 mg tablet 1 tab PO BEDTIME 02/05/21 02/05/21 lisinopril 10 mg tablet 1 tab PO DAILY 02/05/21 02/05/21 metformin 1,000 mg tablet 1 tab PO BID 02/05/21 02/05/21 Previous Rx's Medication Instructions Recorded benzonatate 100 mg capsule 100 mg PO TID PRN cough #30 caps 06/03/22 <Josehp Posey MD - Last Filed: 06/03/22 20:52> Allergies/Adverse Reactions: Allergies Allergy/AdvReac Type Severity Reaction Status Date / Time No Known Allergies Allergy Unverified 02/05/21 04:20 <Joseph Posey MD - Last Filed: 06/03/22 20:52> Review of Systems Review of Systems: Constitutional: No Fever, No Chills ENT/Mouth: No sore throat, No Rhinorrhea, No Swallowing Difficulty Cardiovascular: + Chest Pain, No SOB, No Orthopnea, No Edema Respiratory: + Cough, No Sputum, No Wheezing, No dyspnea Gastrointestinal: No Nausea, No Vomiting, No Diarrhea, No abdominal Pain Genitourinary: No Dysuria, No Urinary Frequency, No Hematuria Musculoskeletal: No joint pain, + Myalgias Skin: No Skin Lesions, No rash Neuro: No Weakness, No Numbness, No Dizziness, + Headache Heme/Lymph: No Bruising, No Lymphadenopathy <MICAELA Nielsen - Last Filed: 06/03/22 22:02> PMF Past Medical History Medical History: Medical History Asthma Diabetes HTN (hypertension) Substance abuse <Joseph Posey MD - Last Filed: 06/03/22 20:52> Surgical History: Surgical History H/O tubal ligation <Joseph Posey MD - Last Filed: 06/03/22 20:52> Social History Social History: Social History Alcohol intake: current Alcohol intake frequency: holidays/special occasions only Patient Tobacco Use Status: Current everyday Tobacco user Substance Use Type: Heroin Advance Directives: No Advance Directives Information Provided: No <Joseph Posey MD - Last Filed: 06/03/22 20:52> Physical Exam Vital Signs: Vital Signs: Last Vital Signs Temp 98.7 F 06/03/22 20:47 Pulse 82 06/03/22 20:47 Resp 18 06/03/22 20:47 BP 146/78 H 06/03/22 20:47 Pulse Ox 97 06/03/22 20:47 O2 Del Method 06/03/22 20:47 BMI result Body Mass Index 27.9 <Joseph Posey MD - Last Filed: 06/03/22 20:52> Vital Signs: Last Vital Signs Temp 98.7 F 06/03/22 20:47 Pulse 82 06/03/22 20:47 Resp 18 06/03/22 20:47 BP 146/78 H 06/03/22 20:47 Pulse Ox 97 06/03/22 20:47 O2 Del Method 06/03/22 20:47 BMI result Body Mass Index 27.9 <MICAELA Nielsen - Last Filed: 06/03/22 22:02> Appearance: Alert. Oriented X3. No acute distress. Eyes: Pupils equal, round and reactive to light. ENT: Pharynx normal. Neck: Normal inspection. Neck supple. No lymphadenopathy CVS: Normal heart rate and rhythm. Pulses normal. Mild diffuse anterior chest wall tenderness. Respiratory: No respiratory distress. Breath sounds with a left upper lobe expiratory wheeze. No other adventitious lung sounds. Skin: Skin warm and dry. Normal skin color. Normal skin turgor. No rashes. Extremities: No lower extremity edema. No calf swelling or tenderness. Neuro: Oriented X 3. Grossly normal, nonfocal <MICAELA Nielsen - Last Filed: 06/03/22 22:02> Course Reevaluation(s) Reevaluation #1: 46 yo female presents to the ED with cough and a fever to 100 along with a headache. Started earlier today. 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 NKDA. Smoker. No other symptoms. <Joseph Posey MD - Last Filed: 06/03/22 20:52> Time: 20:51 <Joseph Posey MD - Last Filed: 06/03/22 20:52> Reevaluation #2: Left upper lobe with slight wheeze. No history of asthma but she is a smoker. Chest x-ray and viral PCR pending. <MICAELA Nielsen - Last Filed: 06/03/22 22:02> Reevaluation #3: XR negative. Viral PCR negative. Most likely other viral etiology. Discussed results and symptomatic management. Antitussive sent to her pharmacy and work note provided per request. Stable for discharge home. Patient agrees with plan all questions were answered. <MICAELA Nielsen - Last Filed: 06/03/22 22:02> Time: 22:02 <MICAELA Nielsen - Last Filed: 06/03/22 22:02> Critical Care Time Critical Care Time Critical Care Time: No <MICAELA Nielsen - Last Filed: 06/03/22 22:02> Discharge Plan Discharge Clinical Impression: Viral infection <Joseph Posey MD - Last Filed: 06/03/22 20:52> Patient Disposition: Home, Self-Care <Joseph Posey MD - Last Filed: 06/03/22 20:52> Instructions: Viral Syndrome (ED) <Joseph Posey MD - Last Filed: 06/03/22 20:52> Additional Instructions: You tested negative for COVID-19, influenza, and RSV. Your chest x-ray was normal, no evidence of pneumonia. Use the prescribed albuterol inhaler as needed for shortness of breath and wheezing. Take the prescribed medications as needed for cough. Take cold and flu medications as needed for your symptoms. Rest and stay hydrated. Follow-up with your doctor. If you develop new or worsening symptoms call 911 or come back to the ER for further evaluation. <Joseph Posey MD - Last Filed: 06/03/22 20:52> Prescriptions: New benzonatate 100 mg capsule 100 mg PO TID PRN (Reason: cough) Qty: 30 0RF No Action atorvastatin 80 mg tablet 1 tab PO BEDTIME metformin 1,000 mg tablet 1 tab PO BID lisinopril 10 mg tablet 1 tab PO DAILY <Joseph Posey MD - Last Filed: 06/03/22 20:52> Stand Alone Forms: Work/School Release <Joseph Posey MD - Last Filed: 06/03/22 20:52>
[2022-06-03 21:41] LABS: Influenza A PCR NEGATIVE (Negative); Influenza B PCR NEGATIVE (Negative); Resp Syncy Virus RNA Qual PCR NEGATIVE (Negative); SARS COV2 PCR INHOUSE NEGATIVE (Negative)
[2022-06-03] MEDS: guaiFEN/Codeine SF 200/20/10ML 10 ML LIQUID PO (21:51)
[2022-06-03] MEDS: Albuterol Sulfate 90 MCG 8 GM INHALER 2 PUFF INHALE (21:51)
== END 2022-06-03 22:09 | disposition home or self-care (01) ==
PROVIDERS: Emergency Medicine; Emergency Provider Emergency Medicine; PCP Internal Medicine
DX: B34.9 Viral infection, unspecified (principal); R50.9 Fever, unspecified; R06.2 Wheezing; Z20.822 Contact with and (suspected) exposure to COVID-19; E11.9 Type 2 diabetes mellitus without complications; I10 Essential (primary) hypertension; F19.10 Other psychoactive substance abuse, uncomplicated; F17.200 Nicotine dependence, unspecified, uncomplicated
CPT/HCPCS: 0241U; 71046; 99282; 99284

== ENCOUNTER 2022-07-29 10:39 | Emergency (ER) | payer MEDICAID, SELFPAY ==
[2022-07-29 10:49] VITALS: BP 150/70; PULSE 74; PULSE 76; O2SAT 97; BMI 28.3
--- NOTE | 2022-07-29 10:54 | PC.NURSE ---
pt not allowing t/w to take vitals, swinging out her arms, almost striking this communications writer multiple times, pt reporting sorry I'm jumpy . pt then laying flat and will suddenly reach out in erratic behavior.
[2022-07-29] MEDS: LORazepam 2 MG/ML VIAL IM (11:12)
--- NOTE | 2022-07-29 11:17 | ED_ITS ---
HPI - General Adult General Chief complaint: ETOH/Substance Use Stated complaint: NOT FEELING WELL S/P HEROIN USE W/SUBOXONE USE Source: patient Mode of arrival: EMS Limitations: no limitations History of Present Illness HPI narrative: 46-year-old female past medical history of polysubstance abuse presents the emergency department today, by EMS, for erratic behavior after using a Suboxone sublingual film and heroin. Patient states she uses heroin 3 to 4 times a day. She began Suboxone therapy this morning using a sublingual film which made her feel jittery, anxious, aggressive, sweaty, and as if shes having tremors or spasms. She states she than snorted a bag of heroin to trying counteract the sensation from the Suboxone, however; she states the combination created a worsening affected her symptoms. She reports she vomited once, at home, after using both suboxone and heroin. She denies any nausea, diarrhea, constipation, headache, vision changes, SI/HI, or confusion. Onset (ago): hour(s) Associated symptoms: denies other symptoms Treatments prior to arrival: none Related Data Home Medications Medication Instructions Recorded Confirmed atorvastatin 80 mg tablet 1 tab PO BEDTIME 02/05/21 02/05/21 lisinopril 10 mg tablet 1 tab PO DAILY 02/05/21 02/05/21 metformin 1,000 mg tablet 1 tab PO BID 02/05/21 02/05/21 Previous Rx's Medication Instructions Recorded benzonatate 100 mg capsule 100 mg PO TID PRN cough #30 caps 06/03/22 Allergies Allergy/AdvReac Type Severity Reaction Status Date / Time No Known Allergies Allergy Unverified 02/05/21 04:20 Review of Systems Review of Systems: In addition to documented HPI above, the additional ROS was obtained: Constitutional: No Weight loss, No Fever, No Chills ENT/Mouth: No Ear Pain, No Nasal Congestion, No Sinus Pain, No Hoarseness, No sore throat, No Rhinorrhea, No Swallowing Difficulty Cardiovascular: No Chest Pain, No SOB Respiratory: No Cough, No Sputum, No Wheezing Gastrointestinal: No Nausea, No Vomiting, No Diarrhea, No Constipation, No Abdominal pain Genitourinary: No Dysuria, No Urinary Frequency, No Hematuria, No Urinary Inco ntinence/retention, No Urgency, No Flank Pain Musculoskeletal: No joint pain, No Myalgias, No Joint Swelling Skin: No Skin Lesions, No rash Neuro: No Weakness, No Numbness, No Paresthesias Yes all other systems are reviewed and are negative [facility] Past Medical History Attestation statement: The following information was validated with the patient. Source: old records reviewed Medical History Asthma Diabetes HTN (hypertension) Substance abuse Surgical History H/O tubal ligation Social History Social History Alcohol intake: current Alcohol intake frequency: holidays/special occasions only Patient Tobacco Use Status: Current everyday Tobacco user Substance Use Type: Heroin Advance Directives: No Advance Directives Information Provided: No Physical Exam ED Vital Signs: Vital Signs - 24 hr 07/29/22 10:49 Pulse Rate 74 Pulse Oximetry 97 Oxygen Delivery Method Room Air BMI result Body Mass Index 28.3 Course Course Course Narrative: 1100: Plan for 2 mg IM lorazepam for control of withdrawal symptoms. 1115: IM lorazepam given 1140: Pt resting in dark room, states symptoms are 'a little bit better' 1200: Spoke with Em from addiction medicine with plan to give 16 mg Suboxone to pt for treatment of withdrawl symptoms. 1330: Plan for additional 4 mg Suboxone due to pt having continued symptoms. Medications Administered Discontinued Medications Generic Name Dose Route Start Last Admin Trade Name Kylerq PRN Reason Stop Dose Admin Buprenorphine/Naloxone 2 film 07/29/22 12:05 07/29/22 12:26 Buprenorphine/Naloxone 8/2 Mg Film SUBLINGUAL 07/29/22 12:06 2 film ONCE ONE Administration Buprenorphine/Naloxone 1 film 07/29/22 13:56 07/29/22 14:40 Buprenorphine/Naloxone 4/1 Mg Film SUBLINGUAL 07/29/22 13:57 Not Given ONCE ONE Lorazepam 2 mg 07/29/22 11:04 07/29/22 11:12 Lorazepam 2 Mg/Ml Vial IM 07/29/22 11:05 2 mg ONCE ONE Administration Medical Decision Making Medical Decision Making MDM Narrative: 46-year-old female past medical history of polysubstance abuse presents the emergency department today, by EMS, for erratic behavior after using a Suboxone sublingual film and heroin. Patient states she uses heroin 3 to 4 times a day. She began Suboxone therapy this morning using a sublingual film which made her feel jittery, anxious, aggressive, sweaty, and as if shes having tremors or spasms. She states she than snorted a bag of heroin to trying counteract the sensation from the Suboxone, however; she states the combination created a worsening affected her symptoms. 2 mg IM Lorazepam with moderate effect. Patient seen by addiction medicine with recommendations to give an initial 16 mg of sublingual Suboxone with moderate reduction in symptoms. Follow-up repeat dose of 4 mg recommended as patient was still having symptoms but declined by patient. History, and physical exam consistent with acute opioid withdrawal secondary to Suboxone. Patient with vital signs stable, LS CTA, A&O x4, TRIPP equally with good strength. Patient is safe for discharge with plan to follow- up with her Suboxone Clinic for further recommendations. HPI, PE, and plan discussed with patient with no unanswered questions at this time. Patient educated to return to the emergency department with new, worsening, or concer niles emergent symptoms. Recommended to follow-up with her primary care provider in addition to her video production specialist for further treatment and management. *Refer to Course for additional information on consultations, diagnostic interpretation, consultations, emergency department stay, conversations with patient and family, shared decision making with patient, and more information on medical decision making* Discharge Plan Discharge Clinical Impression: Acute opioid withdrawal Patient Disposition: Home, Self-Care Instructions: Polysubstance Abuse (ED), Opioid Withdrawal (ED), Narcotic Use Disorder (ED) Additional Instructions: Your symptoms are a result of taking your 1st dose of Suboxone and are result opioid withdrawal. You have been given an antianxiety medication and additional Suboxone here in the emergency department to help with symptom relief. You are safe for discharge at this time with plans to continue your Suboxone therapy as planned/prescribed. Is recommended that you discontinue use of opioids such as heroin Please return to the emergency department with new, worsening, or concerning emergent symptoms. Follow-up with your Suboxone clinic and primary care provider for further treatment and management. Prescriptions: No Action atorvastatin 80 mg tablet 1 tab PO BEDTIME metformin 1,000 mg tablet 1 tab PO BID lisinopril 10 mg tablet 1 tab PO DAILY benzonatate 100 mg capsule 100 mg PO TID PRN (Reason: cough) Qty: 30 0RF Referrals: Jessica Ceballos MD [Primary Care Provider] - Interventions: [place]-Suicide Risk Severity Scale Last Done: 07/29/22 14:40 ED Discharge Assessment Last Done: 07/29/22 15:14 Discharge Date/Time: 07/29/22 15:15 Print Language: Citizen Of [place]
--- NOTE | 2022-07-29 12:03 | MHC.RECOVRN ---
This policy writer sales met w/ patient, patient was laying in bed, leg, arm body movements erratic. Patient reports daily use of IN heroin 1 bundle daily. Patient reports used heroin IN last night, used again shortly after taking 8mg Suboxone film this morning. Patient reports this was first attempt at trying Suboxone and felt immediately sick. Patient states feeling very sick, appeared to not have control of body movements, visibly diaphoretic. T/W spoke w/ Provider about patient presenting s/s of precipitated withdrawal.
[2022-07-29] MEDS: Buprenorphine/Naloxone 8/2 mg FILM 2 FILM SUBLINGUAL (12:26)
--- NOTE | 2022-07-29 12:27 | PC.NURSE ---
pt medicated with suboxone per order float nurse
--- NOTE | 2022-07-29 13:16 | PC.NURSE ---
pt daughter - Fang Doshi
--- NOTE | 2022-07-29 15:01 | MHC.RECOVRN ---
This pattern chart writer met w/ patient, patient laying in bed, erratic movements with arms/legs. T/W attempted to engage patient. Patient did not respond. Patient reminded, can take 4mg BUP at home if starts to feel withdrawal, patient tomorrow to take 8mg BUP in the a.m, 8mg BUP in p.m. and f/u w/ [facility] on [address] [place] [address], patients prescriber.
--- NOTE | 2022-07-29 15:06 | PC.NURSE ---
pt continues to refuse vitals
--- NOTE | 2022-07-29 15:11 | PC.NURSE ---
pt remains restless, offered second dose of suboxone - pt requested a blanket and was provided one, then t/w attempted to give pt her suboxone to which to stopped responding to prompts. pt continued to not respond to prompts by a fellow RN. informed that her med, suboxone, would not be given is she were not awake. pt did not receive second dose of suboxone.
== END 2022-07-29 15:15 | disposition home or self-care (01) ==
PROVIDERS: Emergency Provider Emergency Medicine; PCP Internal Medicine
DX: F11.23 Opioid dependence with withdrawal (principal); Z79.899 Other long term (current) drug therapy
CPT/HCPCS: 96372; 99284; J2060

== ENCOUNTER 2023-03-24 15:35 | Outpatient (REF) | payer MEDICAID, SELFPAY ==
[2023-03-24 15:50] LABS: MANUAL DIFF FLAG NO
[2023-03-24 16:33] LABS: Basophils Absolute Auto 0.1 X10*3/uL (0.0-0.2); Basophils Percent Auto 0.8 % (0-2); Eosinophils Absolute Auto 0.2 X10*3/uL (0.0-0.4); Eosinophils Percent Auto 2.2 % (0-4); Hematocrit 42.5 % (37.0-47.0); Hemoglobin 13.3 g/dl (12.0-16.0); Imm Gran Abs Auto 0.21 X10*3/uL (0.00-0.03); Imm Gran Pct Auto 2.1 % (0.0-0.4); Lymphocytes Absolute Auto 2.8 X10*3/uL (1.2-4.9); Lymphocytes Percent Auto 27.9 % (20-40); Mean Corpuscular HGB Conc 31.3 g/dl (31.0-35.0); Mean Corpuscular Hemoglobin 27.3 pg (27.0-33.0); Mean Corpuscular Volume 87.3 fL (80.0-98.0); Monocytes Absolute Auto 0.7 X10*3/uL (0.1-1.2); Monocytes Percent Auto 6.4 % (2-11); Neutrophils Absolute Auto 6.2 x10*3/uL (2.0-8.3); Neutrophils Percent Auto 60.6 % (45-73); Platelet Count 288 X10*3/uL (160-400); Red Blood Count 4.87 X10*6/uL (4.20-5.50); Red Cell Distribution Width 13.3 % (11.0-16.0); White Blood Count 10.1 X10*3/uL (4.8-10.8)
[2023-03-24 16:39] LABS: Estimated Average Glucose 157 mg/dL; Hemoglobin A1c % 7.1 % (<6.0)
[2023-03-24 17:05] LABS: Alanine Aminotransferase 19 U/L (0-31); Albumin Level 4.3 g/dL (3.5-5.0); Alkaline Phosphatase 114 U/L (39-117); Anion Gap 12 (12-20); Aspartate Amino Transferase 17 U/L (5-31); Bilirubin Total 0.2 mg/dL (0.0-1.0); Blood Urea Nitrogen 12 mg/dL (9-16); Calcium 9.8 mg/dL (8.4-10.2); Carbon Dioxide 29 mmol/L (22-29); Chloride 104 mmol/L (96-108); Cholesterol 267 mg/dL (<200); Estimated Glomerular Filt Rate > 60; Glucose Random 145 mg/dL (60-115); HDL Cholesterol 59 mg/dL (>40); LDL Cholesterol Calculated 177 mg/dL (<100); Potassium 4.5 mmol/L (3.3-5.1); Sodium 140 mmol/L (135-145); Total Protein 7.7 g/dL (6.5-8.0); Triglycerides 157 mg/dL (<150)
[2023-03-24 17:22] LABS: Creatinine Urine 173.03 mg/dL; Microalbum/Creatinine Ratio Ur 9.8 ug/mg cr (<30)
== END 2023-03-24 15:36 | disposition home or self-care (01) ==
LOC: HO.LAB 15:35
PROVIDERS: PCP Internal Medicine; Visit Provider Internal Medicine
DX: Z00.00 Encounter for general adult medical examination without abnormal findings (principal); E11.9 Type 2 diabetes mellitus without complications; I10 Essential (primary) hypertension; M79.673 Pain in unspecified foot
CPT/HCPCS: 36415; 80053; 80061; 82043; 82570; 83036; 85025

== ENCOUNTER 2023-06-09 03:20 | Emergency (ER) | payer MEDICAID, SELFPAY ==
--- NOTE | ~2023-06-09 | CT_ITS ---
EXAMINATION: NONCONTRAST HEAD CT NONCONTRAST CERVICAL SPINE CT INDICATION INFORMATION: Fall, head strike COMPARISON: None TECHNIQUE: Separate noncontrast CT examinations of the head and cervical spine were performed. Coronal head CT images and coronal and sagittal cervical spine images were created at the technologist workstation. DLP: 1039 mGy-cm DOSE LOWERING TECHNIQUES: This CT examination was performed using dose optimization techniques as appropriate, variously including the following: - Automated exposure control - Adjustment of mA and/or kV according to patient size (this includes techniques or standardized protocols for targeted exams were dose is matched to indication/reason for exam; i.e. extremities or head) - Use of iterative reconstruction technique FINDINGS: Head: There is no evidence of acute intracranial hemorrhage or territorial infarction. No abnormal mass-effect or midline shift is seen. Barclay to white matter differentiation is well preserved. No extra-axial fluid collections are identified. The ventricles are normal in size. There is no abnormal attenuation within the brain parenchyma. The osseous structures and soft tissues are normal. Mucosal thickening of the bilateral maxillary sinuses. The mastoid air cells are well-aerated. Cervical spine: There is degenerative change at the atlantodens articulation. There is anatomic alignment of the vertebral bodies and posterior elements. Vertebral body heights are maintained. There is ankylosis across the bilateral C2-C3 facets. Mild disc space narrowing and endplate osteophyte most prominently in the upper cervical spine. No evidence of acute fracture. No prevertebral soft tissue swelling. Visualized portions of the lung apices are unremarkable. The thyroid gland is unremarkable. CT/CT cervical spine wo IV con IMPRESSION: No acute findings identified in the head or cervical spine.
--- NOTE | ~2023-06-09 | CT_ITS ---
EXAMINATION: CT FACIAL BONES WITHOUT CONTRAST CLINICAL INFORMATION: Facial trauma. COMPARISON: None available. TECHNIQUE: 3 mm thin axial and reformatted 1.5 mm thin sagittal and coronal images of facial bones were obtained. This CT examination was performed using dose optimization techniques as appropriate, variously including the following: *Automated exposure control *Adjustment of mA and/or kV according to patient size (this includes techniques or standardized protocols for targeted exams where dose is matched to indication/reason for exam; i.e. extremities or head) *Use of iterative reconstruction technique DLP: 505 mGy-cm FINDINGS: There is diffuse mucoperiosteal thickening involving bilateral maxillary sinuses. Bilateral ethmoid, frontal and sphenoid sinuses are well-aerated and clear. The bony sinus yanez are intact. The lamina papyracea and cribriform plate is intact. Visualized optic globe, optic nerve and bony orbits are normal. There is no visible maxillofacial, nasal or mandibular fracture. Bilateral TM joints are symmetrical and normal. There is no visible maxillofacial, nasal or mandibular fracture. Bilateral TM joints are symmetrical and normal. CT/CT facial bones wo IV con IMPRESSION: 1. No visible maxillofacial, nasal or mandibular fracture. 2. Chronic bilateral maxillary sinus inflammatory changes
[2023-06-09 03:28] VITALS: BP 122/80; BP 140/86; PULSE 72; PULSE 78; RESP 20; TEMP 36.6; O2SAT 98; BMI 33.6
[2023-06-09] MEDS: Acetaminophen 325 MG TABLET 650 MG PO (03:57)
[2023-06-09 04:41] VITALS: BP 128/79; PULSE 63; RESP 16; O2SAT 98
--- NOTE | 2023-06-09 04:42 | MHC.EDTECH ---
This tech attempted to get patient into hospital attire, pt refused , patient allowed this tech to clean face and hands that were covered in blood, telfa applied to lac below right eyebrow ,awaiting provider at this time. vitals and hourly rounds completed
[2023-06-09 05:59] VITALS: BP 119/77; PULSE 65; RESP 16; TEMP 36.6; O2SAT 99
--- NOTE | 2023-06-09 06:00 | MHC.EDTECH ---
Hourly rounds and vitals completed,patient is resting comfortably at this time. Call duncan within reach and daughter at bedside
--- NOTE | 2023-06-09 06:36 | ED_ITS ---
HPI - General Adult General Chief complaint: Fall Stated complaint: SLIP AND FALL Time Seen by Provider: 06/09/23 04:56 Source: patient, family (patient's daughter) and EMS Mode of arrival: EMS Limitations: no limitations History of Present Illness HPI narrative: Patient is a 47 year old assigned female at with a history of DM presenting to the emergency department today with a facial laceration after a fall. Patient states that she was sleep walking when she tripped and fell, hitting her head against a table. Patient denies any dizziness, lightheadedness, abdominal pain, nausea, vomiting, fever, chills, blurry vision, double vision, loss of vision, chest pain, difficulty breathing, shortness of breath, back pain, night sweats, pain with urination, increased urinary frequency, increased urinary urgency, blood in her urine or stool, syncope or a near syncopal episode, bowel incontinence, bladder incontinence, bowel retention, bladder retention, or any other complaints at this time. Patient states that she does not know when her last tetanus shot was. Onset (ago): hour(s) Location: head and face Severity: mild Severity scale (1-10): 4 Quality: aching and dull Pain Consistency: constant Relieving factors: none Exacerbating factors: none Associated symptoms: denies other symptoms Treatments prior to arrival: none Related Data Home Medications Medication Instructions Recorded Confirmed atorvastatin 80 mg tablet 1 tab PO BEDTIME 02/05/21 02/05/21 lisinopril 10 mg tablet 1 tab PO DAILY 02/05/21 02/05/21 metformin 1,000 mg tablet 1 tab PO BID 02/05/21 02/05/21 Previous Rx's Medication Instructions Recorded benzonatate 100 mg capsule 100 mg PO TID PRN cough #30 caps 06/03/22 cefuroxime axetil 250 mg tablet 250 mg PO BID 7 days #14 tabs 06/09/23 Allergies Allergy/AdvReac Type Severity Reaction Status Date / Time No Known Allergies Allergy Verified 06/09/23 03:28 Review of Systems Constitutional: Constitutional: Reports no additional constitutional complaints, Denies chills, Denies fever(s), Reports headache(s) and Denies night sweats Eyes: Eyes: Reports no additional eye complaints, Denies blurry vision, Denies change in vision, Denies diplopia, Denies eye discharge, Denies loss of vision and Denies eye pain ENT: Denies dizziness and Reports headache(s) Comments: facial laceration Cardiovascular: Cardiovascular: Reports no additional cardiovascular complaints, Denies chest pain, Denies lightheadedness, Denies Loss of Consciousness and Denies dyspnea Respiratory: Respiratory: Reports no additional respiratory complaints and Denies dyspnea Gastrointestinal: Gastrointestinal: Reports no additional gastrointestinal complaints, Denies abdominal pain, Denies melena, Denies hematochezia, Denies change in bowel habits and Denies change in stool character Genitourinary: Genitourinary: Denies hematuria, Denies urinary frequency, Denies dysuria, Denies urinary incontinence, Denies urinary hesitancy and Denies urinary urgency Musculoskeletal: Musculoskeletal: Reports no additional musculoskeletal complaints, Denies numbness and Denies tingling Neurologic: Denies dizziness, Reports headache(s), Denies loss of vision, Denies numbness and Denies tingling Psychiatric: Psychiatric: Reports no additional psychiatric complaints Endocrine: Endocrine: Reports no additional endocrine complaints Hematologic/Lymphatic: Hematologic/Lymphatic: Reports no additional hematologic/lymphatic complaints Allergic/Immunologic: Allergic/Immunologic: Reports no additional allergic/immunologic complaints [facility] Past Medical History Attestation statement: The following information was validated with the patient. (all information validated with the patient's daughter) Source: old records reviewed and obtained from family (patient's daughter provided additional history and confirmed the history provided by the patient and EMS) Medical History Substance abuse HTN (hypertension) Asthma Diabetes Surgical History H/O tubal ligation Social History Alcohol intake: current Alcohol intake frequency: holidays/special occasions only Patient Tobacco Use Status: Current everyday Tobacco user Substance Use Type: Heroin Advance Directives: No Advance Directives Information Provided: Yes Physical Exam ED Vital Signs: Vital Signs - 24 hr 06/09/23 03:28 06/09/23 04:41 06/09/23 05:59 Temperature 98 F 97.9 F Pulse Rate 78 63 65 Respiratory Rate 20 16 16 Blood Pressure 140/86 H 128/79 119/77 Pulse Oximetry 98 98 99 Oxygen Delivery Method Room Air Room Air Room Air BMI result Body Mass Index 33.6 Const General: cooperative, no acute distress, alert and awake Nutritional Appearance: well nourished Orientation/consciousness: patient oriented x3 Limitations: no limitations HENMT Other: 4cm crescent shaped laceration inferior of the right eye brow and superior to the right eye lid Ears: hearing grossly normal bilaterally and external ears normal General nose exam: Normal external nose present, no nasal discharge noted and no epistaxis Mouth: Normal oral and palatal mucosa present, no drooling and no muffled voice Eyes General: appearance normal, both eyes and all related structures Periorbital: periorbital findings normal Eyelids: Yes eyelids normal Conjunctivae: conjunctivae normal Pupils: Equal, round and reactive pupils present EOM: EOMs intact bilaterally Neck Neck: Yes normal visual inspection, Yes full ROM and Yes no lymphadenopathy Chest Chest palpation & inspection: normal inspection of the chest Resp Effort & Inspection: normal respiratory effort and able to speak in complete sentences GI Inspection: Yes normal to inspection Neuro General: patient oriented x3 and moves all extremities Cranial nerves: Yes Equal, round and reactive pupils present Cognition (Neuro): normal cognition Motor exam (neuro): 5/5 motor strength present throughout Sensory Exam: Normal double simultaneous stimulation for sensation Coordination: [id number] test normal Extrem General: Yes normal to inspection, Yes full ROM and Yes capillary refill normal Psych Appearance: grossly normal Mental Status: mental status grossly normal Affect: normal affect Attitude: cooperative Thought process: Normal thought process present Thought content: Normal thought content present Insight: Good insight present (Psych) Medications Administered Discontinued Medications Generic Name Dose Route Start Last Admin Trade Name Sky PRN Reason Stop Dose Admin Acetaminophen 650 mg 06/09/23 03:36 06/09/23 03:57 Acetaminophen 325 Mg Tablet PO 06/09/23 03:37 650 mg ONCE ONE Administration Cefuroxime Axetil 250 mg 06/09/23 06:49 06/09/23 07:20 Cefuroxime Axetil 250 Mg Tablet PO 06/09/23 06:50 250 mg ONCE ONE Administration Diphtheria/Tetanus/Acell Pertussis 0.5 ml 06/09/23 06:49 06/09/23 07:20 Diphth,Pertus(Acell),Tet Adult 0.5 Ml Syringe IM 06/09/23 06:50 0.5 ml .ONCE ONE Administration Lidocaine HCl 15 ml 06/09/23 06:49 06/09/23 07:21 Lidocaine Hcl 1 % Mpf 5 Ml Vial SUBCUT 06/09/23 06:50 15 ml ONCE ONE Administration Procedures Laceration Laceration 1: Site: face Side (If applicable): right Size (cm): 4 Description: other (crescent shaped) Depth: simple, single layer Local Anesthetic: lidocaine 1% Amount of anesthesia used (mL): 10 Pre-repair: wound explored and irrigated extensively Skin layer closed with: other (prolene) Size (cm): 6-0 Number of sutures: 5 Technique: simple, interrupted Subcutaneous layer closed with: chromic gut Size: 6-0 Number of sutures: 1 Technique: simple, interrupted Medical Decision Making Medical Decision Making MDM Narrative: Patient is a 47 year old assigned female at with a history of DM presenting to the emergency department today with a facial laceration. Patient's physical exam was as noted in the physical exam portion of this note. Patient's head, C-Spine, and facial bones CTs showed no acute process. I explained my physical exam findings as well as all test results to the patient and the patient's daughter. I answered all questions asked by the patient and the patient's daughter. Patient was brought up to date for tetanus. Patient was given her first dose of antibiotics while here. Patient's laceration was repaired, per procedure note, without incident. I stressed the importance of the patient taking her medication as prescribed. I stressed the importance of the patient following up with her primary care provider and given she is a diabetic, the wound center. I stressed the importance of the patient returning to the emergency department immediately if her symptoms were to worsen or if she were to develop any dizziness, shortness of breath, difficulty breathing, chest pain, blurry vision, loss of vision, nausea, vomiting, abdominal pain, fever, chills, back pain, or any other complaints. Patient and the patient's daughter verbalized agreement and understanding with this treatment plan and discharge. Differential Diagnosis Differential Diagnoses: The differential diagnosis associated with the presentation includes Facial laceration Fall Head injury Facial injury Independent Interpretation I performed an independent interpretation of an: CT Scan Interpretation: My interpretation is in agreement with the radiologist's impression of these imaging studies. EXAMINATION: CT FACIAL BONES WITHOUT CONTRAST CLINICAL INFORMATION: Facial trauma. COMPARISON: None available. TECHNIQUE: 3 mm thin axial and reformatted 1.5 mm thin sagittal and coronal images of facial bones were obtained. This CT examination was performed using dose optimization techniques as appropriate, variously including the following: *Automated exposure control *Adjustment of mA and/or kV according to patient size (this includes techniques or standardized protocols for targeted exams where dose is matched to indication/reason for exam; i.e. extremities or head) *Use of iterative reconstruction technique DLP: 505 mGy-cm FINDINGS: There is diffuse mucoperiosteal thickening involving bilateral maxillary sinuses. Bilateral ethmoid, frontal and sphenoid sinuses are well-aerated and clear. The bony sinus yanez are intact. The lamina papyracea and cribriform plate is intact. Visualized optic globe, optic nerve and bony orbits are normal. There is no visible maxillofacial, nasal or mandibular fracture. Bilateral TM joints are symmetrical and normal. There is no visible maxillofacial, nasal or mandibular fracture. Bilateral TM joints are symmetrical and normal. CT/CT facial bones wo IV con IMPRESSION: 1. No visible maxillofacial, nasal or mandibular fracture. 2. Chronic bilateral maxillary sinus inflammatory changes Dictated By: Kingston Bright MD Signed By: Electronically signed by Kingston Bright MD 06/09/23 0829 EXAMINATION: NONCONTRAST HEAD CT NONCONTRAST CERVICAL SPINE CT INDICATION INFORMATION: Fall, head strike COMPARISON: None TECHNIQUE: Separate noncontrast CT examinations of the head and cervical spine were performed. Coronal head CT images and coronal and sagittal cervical spine images were created at the technologist workstation. DLP: 1039 mGy-cm DOSE LOWERING TECHNIQUES: This CT examination was performed using dose optimization techniques as appropriate, variously including the following: - Automated exposure control - Adjustment of mA and/or kV according to patient size (this includes techniques or standardized protocols for targeted exams were dose is matched to indication/reason for exam; i.e. extremities or head) - Use of iterative reconstruction technique FINDINGS: Head: There is no evidence of acute intracranial hemorrhage or territorial infarction. No abnormal mass-effect or midline shift is seen. Barclay to white matter differentiation is well preserved. No extra-axial fluid collections are identified. The ventricles are normal in size. There is no abnormal attenuation within the brain parenchyma. The osseous structures and soft tissues are normal. Mucosal thickening of the bilateral maxillary sinuses. The mastoid air cells are well-aerated. Cervical spine: There is degenerative change at the atlantodens articulation. There is anatomic alignment of the vertebral bodies and posterior elements. Vertebral body heights are maintained. There is ankylosis across the bilateral C2-C3 facets. Mild disc space narrowing and endplate osteophyte most prominently in the upper cervical spine. No evidence of acute fracture. No prevertebral soft tissue swelling. Visualized portions of the lung apices are unremarkable. The thyroid gland is unremarkable. CT/CT head/brain wo IV con IMPRESSION: No acute findings identified in the head or cervical spine. Dictated By: Mendoza Royal MD Signed By: Electronically signed by Mendoza Royal MD 06/09/23 0441 Radiology Impression Discussion of test interpretation with radiology: I have reviewed the radiologist's reading. Independent Historian Clinical information obtained from an independent historian. History obtained from or confirmed by: EMS (EMS provided additional history and confirmed the history provided by the patient.) and Other (patient's daughter provided additional history and confirmed the history provided by the patient.) Prescription Management I considered prescription management with: Antibiotic (patient prescribed a prophylactic antibiotic given her wound and history of DM.) Chronic Conditions Patient?s care impacted by: Diabetes Discharge Plan Discharge Clinical Impression: Fall, Face lacerations Patient Disposition: Home, Self-Care Instructions: Care For Your Stitches (DC), Laceration (DC), Fall Prevention (ED) Additional Instructions: Do NOT soak the affected area. You may get it wet in the shower but may NOT soak it. Do NOT go in the [place], pools, [place], lakes, or any other large body of water. Take your antibiotic as prescribed. Have your sutures removed in 7-10 days (the 1 internal suture will dissolve on it's own, you need the 5 external sutures removed). Follow up with your primary care provider and given your history of diabetes, the wound center. Return to the emergency department immediately if you develop any dizziness, shortness of breath, difficulty breathing, chest pain, blurry vision, loss of vision, nausea, vomiting, abdominal pain, fever, chills, back pain, or any other complaints. Prescriptions: New cefuroxime axetil 250 mg tablet 250 mg PO BID 7 Days Qty: 14 0RF No Action atorvastatin 80 mg tablet 1 tab PO BEDTIME metformin 1,000 mg tablet 1 tab PO BID lisinopril 10 mg tablet 1 tab PO DAILY benzonatate 100 mg capsule 100 mg PO TID PRN (Reason: cough) Qty: 30 0RF Ref[place]: [facility] [place] [facility] [place]] (Call to establish and follow up with the wound center. ) Jessica Ceballos MD [Primary Care Provider] - Stand Alone Forms: Work/School Release Print Language: Uzbek
[2023-06-09] MEDS: Diphth,Pertus(ACell),Tet Adult 0.5 ML SYRINGE IM (07:20)
[2023-06-09] MEDS: cefuroxime axetiL 250 MG TABLET PO (07:20)
[2023-06-09] MEDS: Lidocaine HCl 1 % MPF 5 ML VIAL 15 ML SUBCUT (07:21)
[2023-06-09 09:43] VITALS: BP 134/74; PULSE 77; RESP 19; O2SAT 98
== END 2023-06-09 09:44 | disposition home or self-care (01) ==
PROVIDERS: Emergency Provider Emergency Medicine; PCP Internal Medicine
DX: S01.111A Laceration without foreign body of right eyelid and periocular area, initial encounter (principal); W01.190A Fall on same level from slipping, tripping and stumbling with subsequent striking against furniture, initial encounter; E11.9 Type 2 diabetes mellitus without complications; I10 Essential (primary) hypertension; F19.10 Other psychoactive substance abuse, uncomplicated; F17.200 Nicotine dependence, unspecified, uncomplicated; Y93.89 Activity, other specified; Y92.039 Unspecified place in apartment as the place of occurrence of the external cause; Y99.9 Unspecified external cause status; Z79.84 Long term (current) use of oral hypoglycemic drugs; Z79.02 Long term (current) use of antithrombotics/antiplatelets; Z79.899 Other long term (current) drug therapy
CPT/HCPCS: 12011; 70450; 70486; 72125; 90471; 90715; 99284

== ENCOUNTER 2023-10-11 11:59 | Emergency (ER) | payer MEDICAID, SELFPAY ==
--- NOTE | ~2023-10-11 | XR_ITS ---
Examination: XR sacrum coccyx min 2V, XR lumbar spine 2-3V Indication: fall. Fracture? Comparison: No pertinent prior studies are currently available for comparison. Technique: Frontal and 2 lateral views of the lumbosacral spine with 2 frontal and one lateral view of the sacrum/coccyx obtained Findings: Bones are in normal anatomic alignment. I do not appreciate any acute fracture or dislocation. No significant spondylolisthesis. Vertebral body heights and disc heights are preserved. Mild multilevel degenerative changes in the posterior elements of the lower lumbar spine. Likely transitional vertebra at the lumbosacral junction with partial sacralization of L5 suspected. Prominent amount of stool noted. XR/XR sacrum coccyx min 2V Impression: Mild degenerative changes but no acute fracture or dislocation. Likely transitional vertebra at the lumbosacral junction.
--- NOTE | ~2023-10-11 | XR_ITS ---
Examination: XR sacrum coccyx min 2V, XR lumbar spine 2-3V Indication: fall. Fracture? Comparison: No pertinent prior studies are currently available for comparison. Technique: Frontal and 2 lateral views of the lumbosacral spine with 2 frontal and one lateral view of the sacrum/coccyx obtained Findings: Bones are in normal anatomic alignment. I do not appreciate any acute fracture or dislocation. No significant spondylolisthesis. Vertebral body heights and disc heights are preserved. Mild multilevel degenerative changes in the posterior elements of the lower lumbar spine. Likely transitional vertebra at the lumbosacral junction with partial sacralization of L5 suspected. Prominent amount of stool noted. XR/XR lumbar spine 2-3V Impression: Mild degenerative changes but no acute fracture or dislocation. Likely transitional vertebra at the lumbosacral junction.
[2023-10-11 12:07] VITALS: BP 149/102; PULSE 100; RESP 20; TEMP 36.7; O2SAT 96; BMI 32.6
--- NOTE | 2023-10-11 12:54 | ED_ITS ---
HPI - General Adult General Chief complaint: Back Pain/Injury Stated complaint: Fall today - back & hip injury Time Seen by Provider: 10/11/23 12:23 Source: patient Mode of arrival: ambulatory Limitations: no limitations History of Present Illness HPI narrative: 47-year-old female history of diabetes high cholesterol presents to ED for low back buttock pain. Patient states her dog jumped into her which caused her to fall straight down onto her coccyx. Patient denies hitting head or loss of consciousness. Patient denies any dizziness, nausea, vomiting, flank pain, fever, chills, abdominal pain, nausea, vomiting, dysuria, hematuria, urinary/bowel incontinence, or any history of IV drug use. Related Data Home Medications Medication Instructions Recorded Confirmed atorvastatin 80 mg tablet 1 tab PO BEDTIME 02/05/21 02/05/21 lisinopril 10 mg tablet 1 tab PO DAILY 02/05/21 02/05/21 metformin 1,000 mg tablet 1 tab PO BID 02/05/21 02/05/21 Previous Rx's Medication Instructions Recorded benzonatate 100 mg capsule 100 mg PO TID PRN cough #30 caps 06/03/22 cefuroxime axetil 250 mg tablet 250 mg PO BID 7 days #14 tabs 06/09/23 cyclobenzaprine 10 mg tablet 10 mg PO BEDTIME PRN muscle spasm 10/11/23 9 days #9 tabs naproxen 500 mg tablet 500 mg PO BID PRN pain 7 days #14 10/11/23 tabs Allergies Allergy/AdvReac Type Severity Reaction Status Date / Time No Known Allergies Allergy Verified 10/11/23 12:06 Review of Systems 2 Review of Systems: Back pain Yes all other systems are reviewed and are negative [facility] Past Medical History Medical History Substance abuse HTN (hypertension) Asthma Diabetes Surgical History H/O tubal ligation Social History Social History Alcohol intake: current Alcohol intake frequency: holidays/special occasions only Patient Tobacco Use Status: Current everyday Tobacco user Substance Use Type: Heroin Advance Directives: No Advance Directives Information Provided: Yes Physical Exam ED Vital Signs: Vital Signs - 24 hr 10/11/23 12:07 Temperature 98.0 F Pulse Rate 100 Respiratory Rate 20 Blood Pressure 149/102 H Pulse Oximetry 96 Oxygen Delivery Method Room Air BMI result Body Mass Index 32.6 Const General: cooperative, healthy appearing, comfortable, no acute distress, well developed, alert, awake and Physically active Orientation/consciousness: oriented to person, oriented to place, oriented to time and patient oriented x3 HENMT Head: Yes normal to inspection, Yes No palpable skull fracture present, Yes normocephalic, Yes atraumatic and No abrasion Eyes General: appearance normal, both eyes and all related structures Neck Neck: Yes normal visual inspection, Yes full ROM, Yes no lymphadenopathy, Yes no meningeal signs, Yes trachea midline, Yes supple, No anterior neck swelling and No tender Chest Chest palpation & inspection: normal inspection of the chest and normal palpation of entire chest wall Resp Effort & Inspection: normal respiratory effort and able to speak in complete sentences Auscultation: clear to auscultation bilaterally Cardio Jugular venous distension: no JVD Heart sounds: S1 normal heart sound present and S2 normal heart sound present GI Inspection: Yes normal to inspection Palpation (GI): Soft to palpation, not firm, nontender, no guarding and not rigid General: No CVA tenderness and Yes no CVA tenderness Back/Spine/Pelvis Back: no CVA tenderness, No CVA tenderness and back tenderness (lumbar/sacral cocys) Back/spine/pelvis image: 2 1. positive for tenderness on palpation. Negative for crepitus, ecchymosis, deformity, erythema, rash Skin General skin exam: no rashes or lesions noted, elasticity normal and turgor normal Neuro General: oriented to person, oriented to place, oriented to time, patient oriented x3, gait normal, tone normal, moves all extremities, Normal light touch and pain sensation, no meningeal signs, no focal motor deficits, CN's II-XI intact bilaterally and normal sensation to monofilament Extrem General: Yes normal to inspection, Yes full ROM and Yes capillary refill normal Psych Appearance: grossly normal, well kempt and not disheveled Medications Administered Discontinued Medications Generic Name Dose Route Start Last Admin Trade Name Freq PRN Reason Stop Dose Admin Ketorolac Tromethamine 30 mg 10/11/23 13:56 10/11/23 14:09 Ketorolac Tromethamine 30 Mg/Ml Vial IM 10/11/23 13:57 30 mg ONCE ONE Administration Medical Decision Making Medical Decision Making [facility] Narrative: 47-year-old female presents ED for low back pain after being pushed into her buttock by her dog. Patient denies any head trauma. Positive for lumbar sacral coccyx tenderness. Was sent for x-ray. 1:56pm: Xray negative for fractures. Contusion diagnossis. Given toradol pain meds. Differential Diagnosis Differential Diagnoses: The differential diagnosis associated with the presentation includes (Fractures, contusion) Admission/Observation Consideration of admission/observation: Escalation of care including admission/observation considered Independent Interpretation I performed an independent interpretation of an: Plain X-Ray Radiology Impression Discussion of test interpretation with radiology: I have reviewed the radiologist's reading. Independent Historian Clinical information obtained from an independent historian. History obtained from or confirmed by: Other (patient ) External Record Review External record reviewed: Other (prior visits) Prescription Management I considered prescription management with: Pain Medication Discharge Plan Discharge Clinical Impression: Contusion, Back pain Patient Disposition: Home, Self-Care Instructions: Back Pain (ED), Bone Bruise (ED) Additional Instructions: Recommend follow-up with primary care provider. Return to the ED immediately for urinary/ bowel incontinence, severe back pain, nausea, vomiting, flank pain, fever, chills, bloody urine, painful urine, abdominal pain, or any other concerning symptoms. Prescriptions: New naproxen 500 mg tablet 500 mg PO BID PRN (Reason: pain) 7 Days Qty: 14 0RF cyclobenzaprine 10 mg tablet 10 mg PO BEDTIME PRN (Reason: muscle spasm) 9 Days Qty: 9 0RF Rx Instructions: Side effects of drowsiness. Take at night. Do not drive while taking it. No Action atorvastatin 80 mg tablet 1 tab PO BEDTIME metformin 1,000 mg tablet 1 tab PO BID lisinopril 10 mg tablet 1 tab PO DAILY benzonatate 100 mg capsule 100 mg PO TID PRN (Reason: cough) Qty: 30 0RF cefuroxime axetil 250 mg tablet 250 mg PO BID 7 Days Qty: 14 0RF Interventions: ED Discharge Assessment Last Done: 10/11/23 14:12 Discharge Date/Time: 10/11/23 14:13 Print Language: Kittitian
[2023-10-11] MEDS: Ketorolac Tromethamine 30 MG/ML VIAL IM (14:09)
[2023-10-11 14:12] VITALS: BP 149/102; PULSE 100; RESP 20; TEMP 36.7; O2SAT 96
== END 2023-10-11 14:13 | disposition home or self-care (01) ==
PROVIDERS: Emergency Provider Student in an Organized Health Care Education/Training Program; PCP Internal Medicine
DX: S30.0XXA Contusion of lower back and pelvis, initial encounter (principal); I10 Essential (primary) hypertension; E11.9 Type 2 diabetes mellitus without complications; J45.909 Unspecified asthma, uncomplicated; W18.39XA Other fall on same level, initial encounter; Y93.9 Activity, unspecified; Y92.9 Unspecified place or not applicable; Y99.9 Unspecified external cause status
CPT/HCPCS: 72100; 72220; 96372; 99283; 99284; J1885

== ENCOUNTER 2023-10-18 10:59 | Emergency (ER) | payer MEDICAID, SELFPAY ==
[2023-10-18 11:10] VITALS: BP 134/86; PULSE 86; RESP 20; TEMP 37.2; O2SAT 97; BMI 28.6
--- NOTE | 2023-10-18 12:37 | ED_ITS ---
HPI - General Adult General Chief complaint: Recheck/Abnormal Lab/Rx Stated complaint: Methadone dose Time Seen by Provider: 10/18/23 12:37 Source: patient Mode of arrival: ambulatory Limitations: no limitations History of Present Illness HPI narrative: 47-year-old female presents to the ED to receive her methadone dose. Patient missed her methadone dose today that is 55 mg. Patient states no other complaints. Related Data Home Medications ?Medication ?Instructions ?Recorded ?Confirmed atorvastatin 80 mg tablet 1 tab PO BEDTIME 02/05/21 02/05/21 lisinopril 10 mg tablet 1 tab PO DAILY 02/05/21 02/05/21 metformin 1,000 mg tablet 1 tab PO BID 02/05/21 02/05/21 Previous Rx's ?Medication ?Instructions ?Recorded benzonatate 100 mg capsule 100 mg PO TID PRN cough #30 caps 06/03/22 cefuroxime axetil 250 mg tablet 250 mg PO BID 7 days #14 tabs 06/09/23 cyclobenzaprine 10 mg tablet 10 mg PO BEDTIME PRN muscle spasm 10/11/23 9 days #9 tabs naproxen 500 mg tablet 500 mg PO BID PRN pain 7 days #14 10/11/23 tabs Allergies Allergy/AdvReac Type Severity Reaction Status Date / Time No Known Allergies Allergy Verified 10/18/23 11:14 Review of Systems Review of Systems: Medication refill Yes all other systems are reviewed and are negative [facility] Past Medical History Medical History Substance abuse HTN (hypertension) Asthma Diabetes Surgical History H/O tubal ligation Social History Social History Alcohol intake: current Alcohol intake frequency: holidays/special occasions only Patient Tobacco Use Status: Current everyday Tobacco user Substance Use Type: Heroin Advance Directives: No Advance Directives Information Provided: No Physical Exam ED Vital Signs: Vital Signs - 24 hr 10/18/23 11:10 10/18/23 12:48 Temperature 98.9 F 98 F Pulse Rate 86 69 Respiratory Rate 20 20 Blood Pressure 134/86 162/91 H Pulse Oximetry 97 95 Oxygen Delivery Method Room Air Room Air BMI result Body Mass Index 28.6 Const General: cooperative, healthy appearing, comfortable, no acute distress, well developed, alert, awake and Physically active Orientation/consciousness: oriented to person, oriented to place, oriented to time and patient oriented x3 HENMT Head: Yes normal to inspection, Yes No palpable skull fracture present, Yes normocephalic, Yes atraumatic and No abrasion Eyes General: appearance normal, both eyes and all related structures Neck Neck: Yes normal visual inspection, Yes full ROM, Yes no lymphadenopathy, Yes no meningeal signs, Yes trachea midline, Yes supple, No anterior neck swelling and No tender Chest Chest palpation & inspection: normal inspection of the chest and normal palpation of entire chest wall Resp Effort & Inspection: normal respiratory effort and able to speak in complete sentences Auscultation: clear to auscultation bilaterally Cardio Jugular venous distension: no JVD Heart sounds: S1 normal heart sound present and S2 normal heart sound present GI Inspection: Yes normal to inspection Palpation (GI): Soft to palpation, not firm, nontender, no guarding and not rigid General: Yes no CVA tenderness Back/Spine/Pelvis Back: no CVA tenderness and No back tenderness Skin General skin exam: no rashes or lesions noted, elasticity normal and turgor normal Neuro General: oriented to person, oriented to place, oriented to time, patient oriented x3, gait normal, tone normal, moves all extremities, Normal light touch and pain sensation, no meningeal signs, no focal motor deficits, CN's II-XI intact bilaterally and normal sensation to monofilament Extrem General: Yes normal to inspection, Yes full ROM and Yes capillary refill normal Psych Appearance: grossly normal, well kempt and not disheveled Medications Administered Discontinued Medications Generic Name Dose Route Start Last Admin Trade Name Sky PRN Reason Stop Dose Admin Methadone HCl 55 mg 10/18/23 11:37 10/18/23 12:38 Methadone Hcl 20 Mg/2 Ml Oral.Conc PO 10/18/23 11:38 55 mg ONCE ONE Administration Medical Decision Making Medical Decision Making MDM Narrative: 47 year female presents ED for methadone dose. Patient states no other complaints. Patient given methadone dose after is was confirmed by nurse calling her program. Patient recommend follow-up primary care provider Differential Diagnosis Differential Diagnoses: The differential diagnosis associated with the presentation includes (Medication refill methadone use) Admission/Observation Consideration of admission/observation: Escalation of care including admission/observation considered Independent Historian Clinical information obtained from an independent historian. History obtained from or confirmed by: Other (Patient) External Record Review External record reviewed: Other (Prior visit) Discharge Plan Discharge Clinical Impression: Encounter for medication refill Patient Disposition: Home, Self-Care Instructions: Medicine Refill (ED) Additional Instructions: Return to the ED immediately for any concerning symptoms. Recommend follow-up with primary care provider Prescriptions: No Action atorvastatin 80 mg tablet 1 tab PO BEDTIME metformin 1,000 mg tablet 1 tab PO BID lisinopril 10 mg tablet 1 tab PO DAILY benzonatate 100 mg capsule 100 mg PO TID PRN (Reason: cough) Qty: 30 0RF cefuroxime axetil 250 mg tablet 250 mg PO BID 7 Days Qty: 14 0RF naproxen 500 mg tablet 500 mg PO BID PRN (Reason: pain) 7 Days Qty: 14 0RF cyclobenzaprine 10 mg tablet 10 mg PO BEDTIME PRN (Reason: muscle spasm) 9 Days Qty: 9 0RF Rx Instructions: Side effects of drowsiness. Take at night. Do not drive while taking it. Interventions: ED Discharge Assessment Last Done: 10/18/23 12:48 Discharge Date/Time: 10/18/23 12:48 Print Language: [place]
[2023-10-18] MEDS: methADONE HCl 20 MG/2 ML ORAL.CONC 55 MG PO (12:38)
[2023-10-18 12:48] VITALS: BP 162/91; PULSE 69; RESP 20; TEMP 36.6; O2SAT 95
== END 2023-10-18 12:48 | disposition home or self-care (01) ==
PROVIDERS: Emergency Provider Student in an Organized Health Care Education/Training Program; PCP Internal Medicine
DX: Z76.0 Encounter for issue of repeat prescription (principal); Z79.899 Other long term (current) drug therapy
CPT/HCPCS: 99282; 99283